=== PATIENT | female | born 1975 | race Caucasian/White ===

== ENCOUNTER → 2022-03-04 14:57 | Outpatient (CLI) | payer OTHER, SELFPAY ==
--- NOTE | ~2022-03-04 | US_ITS ---
US thyroid INDICATION: Follow-up thyroid nodule TECHNIQUE: Real-time sonographic images of the thyroid gland were obtained. COMPARISON: No prior studies for comparison. FINDINGS: The right thyroid lobe measures 4.8 x 1.9 x 1.6 cm. The left thyroid lobe measures 4.3 x 2 x 1.6 cm. Thyroid echotexture is diffusely heterogeneous with multiple bilateral thyroid nodules. La rgest right thyroid nodule measures 8 x 8 x 5 mm with a mixed solid and cystic, hypoechoic, wider sammy n tall, ill-defined margins with no echogenic foci, TR 3. Largest left thyroid nodule measures 4 mm i s solid, hypoechoic, wider than tall, smoothly marginated without internal echogenic foci, TR 4. IMPRESSION: 1. Bilateral thyroid nodules consistent with multinodular goiter, likely benign. No discrete masses meet sonographic criteria for biopsy. Consider follow-up ultrasound in 12 months. Reviewed, dictated and finalized at [facility] IMPRESSION: 1. Bilateral thyroid nodules consistent with multinodular goiter, likely benig n. No discrete masses meet sonographic criteria for biopsy. Consider follow-up ultrasound in 12 months.
== END ==
PROVIDERS: PCP Nurse Practitioner; Visit Provider Nurse Practitioner
DX: E04.2 Nontoxic multinodular goiter (principal)
CPT/HCPCS: 76536